=== PATIENT | female | born 1975 | race Two or more races ===

== ENCOUNTER 2019-04-05 07:24 | Emergency (ER) | payer MEDICAID, OTHER ==
[~2019-04-05] VITALS: Ht 160 cm; Wt 70.5 kg
[2019-04-05 07:33] VITALS: BP 151/91
== END 2019-04-05 08:55 | disposition home or self-care (01) ==
LOC: ER 07:24
DX: S16.1XXA Strain of muscle, fascia and tendon at neck level, initial encounter (principal); J20.9 Acute bronchitis, unspecified; W19.XXXA Unspecified fall, initial encounter; Y93.89 Activity, other specified; Y92.89 Other specified places as the place of occurrence of the external cause; Y99.8 Other external cause status